=== PATIENT | male | born 1955 ===

== ENCOUNTER → 2018-03-02 | Outpatient (CLI) | payer OTHER ==
[~2018-03-02] MED LIST: CYCL10 PO; FERR325 PO; FISH1000 PO; FLUO10; GABA100; GABA300 PO; GLIP5; GLIP5 PO; LOSA25 PO; METF500 PO; Prozac20 MG PO
== END ==
LOC: LAB SHORT 15:00 → LAB 15:00
DX: G89.4 Chronic pain syndrome (principal); Z79.899 Other long term (current) drug therapy
CPT/HCPCS: G0480

== ENCOUNTER → 2018-05-21 | Outpatient (CLI) | payer OTHER | END | disposition home or self-care (01) | LOC: LAB SHORT 10:47 → LAB 10:47 | DX: D50.0 Iron deficiency anemia secondary to blood loss (chronic) (principal) | CPT/HCPCS: 82607; 82746 ==

== ENCOUNTER → 2019-04-29 | Outpatient (CLI) | payer OTHER ==
[2019-04-29 13:20] LABS: BASOPHILS ABSOLUTE AUTO 0.07 K/mm3 (0.00-0.23); BASOPHILS PERCENT AUTO 1 % (0-2); EOSINOPHILS ABSOLUTE AUTO 0.75 K/mm3 (0.00-0.68); EOSINOPHILS PERCENT AUTO 10 % (0-6); Hematocrit 44.5 % (37.0-53.0); Hemoglobin 14.7 g/dL (13.5-17.5); IMMATURE GRAN ABSOLUTE AUTO 0.03 K/mm3 (0.00-0.10); IMMATURE GRAN PERCENT AUTO 0 % (0-1); LYMPHOCYTES ABSOLUTE AUTO 1.54 K/mm3 (0.84-5.20); LYMPHOCYTES PERCENT AUTO 20 % (21-46); MONOCYTES ABSOLUTE AUTO 0.58 K/mm3 (0.16-1.47); MONOCYTES PERCENT AUTO 7 % (4-13); Mean Corpuscular HGB 31.5 pg (26.0-34.0); Mean Corpuscular Volume 95 fL (80-100); Mean Platelet Volume 10.2 fL (9.1-12.4); NEUTROPHILS ABSOLUTE AUTO 4.87 K/mm3 (1.96-9.15); NEUTROPHILS PERCENT AUTO 62 % (41-73); Platelet Count 234 K/mm3 (150-400); RDW Coefficient Variation 12.6 % (11.7-14.2); RDW Standard Deviation 44.2 fL (35.1-46.3); Red Blood Cell Count 4.67 M/mm3 (4.30-5.90); White Blood Cell Count 7.84 K/mm3 (4.00-11.30)
== END | disposition home or self-care (01) ==
LOC: LAB 13:06 → LAB SHORT 13:06
PROVIDERS: Internal Medicine Hematology & Oncology
DX: D50.0 Iron deficiency anemia secondary to blood loss (chronic) (principal)
CPT/HCPCS: 85025

== ENCOUNTER → 2022-09-02 | Outpatient (CLI) | payer SELFPAY ==
[2022-09-05 07:56] LABS: Stool Occult Bld Immuno 1 Negative (NEGATIVE)
== END | disposition home or self-care (01) ==
LOC: LAB SHORT 16:52
PROVIDERS: Nurse Practitioner Family
DX: Z12.11 Encounter for screening for malignant neoplasm of colon (principal)
CPT/HCPCS: G0328

== ENCOUNTER → 2023-05-14 | Outpatient (CLI) | payer OTHER ==
[2023-05-14 19:36] LABS: Percent Saturation 5.2 % (20.0-50.0)
== END | disposition home or self-care (01) ==
LOC: LAB 15:55 → LAB SHORT 15:55
PROVIDERS: Internal Medicine Hematology & Oncology
DX: D50.0 Iron deficiency anemia secondary to blood loss (chronic) (principal)
CPT/HCPCS: 82728; 83540; 83550

== ENCOUNTER 2023-07-15 07:27 | Day surgery (SDC) | payer OTHER ==
[~2023-07-15] VITALS: Ht 167 cm; Wt 81.4 kg
[2023-07-15] VITALS (27 sets, daily range): BP systolic 109–158; BP diastolic 58–119
[~2023-07-15 07:27] MED LIST changes: +INSULANI SC; +INSULANPEN SC
--- NOTE | 2023-07-15 07:57 | NUR ---
07/15/23 0757 Reji Mondragon HISTORY, CHART, MEDICATIONS AND ALLERGIES REVIEWED BEFORE START OF PROCEDURE. PATIENT CONFIRMS NPO STATUS AND AGREES WITH SCHEDULED PROCEDURE. 3-LEAD EKG REVIEWED WITH PHYSICIAN PRIOR TO START OF PROCEDURE. MONITOR INTACT WITH CONTINUOUS PULSE OXIMETRY,CAPNOGRAPHY, 3-LEAD EKG, INTERMITTENT BP. SUPPLEMENTAL O2 TO BE TITRATED THROUGHOUT PROCEDURE TO MAINTAIN O2 SATURATION ABOVE 90%. PATIENT DETERMINED TO BE ASA APPROPRIATE FOR PROPOFOL SEDATION PRIOR TO START OF PROCEDURE BY
--- NOTE | 2023-07-15 09:03 | NUR ---
REPORT RECEIVED FROM DRAGAN NICOLAS RN. VSS. PT ABLE TO REPOSITION SELF IN BED. PT REQUESTING PO FLUIDS AND TOLERATING THEM WELL. PT DENIES PAIN, NAUSEA, OR OTHER DISCOMFORTS AT THIS TIME. DAUGHTER AT BEDSIDE.
--- NOTE | 2023-07-15 09:31 | NUR ---
Patient up to Ambulate independently. Gait steady. VSS AND CONSISTENT WITH PT BASELINE. Discharge instructions reviewed with patient AND HIS DAUGHTER. Patient AND DAUGHTER verbalize understanding. Copy given to patient to take home. NO ADDITIONAL FORMS NEEDED PER PT AND DAUGHTER. Patient States Post-Procedure ride home has been arranged. Discharged via wheelchair to private car for ride home. PT BELONGINGS RETURNED TO PT.
== END 2023-07-15 09:37 | disposition home or self-care (01) ==
LOC: ORSCMMR 07:27 → ORD 08:00 → ORSCMMR 09:37
PROVIDERS: Internal Medicine Gastroenterology
PROC: 0DJ08ZZ Inspection of Upper Intestinal Tract, Via Natural or Artificial Opening Endoscopic (ICD-10-PCS; principal; 2023-07-15 08:00)
PROC: 0DJD8ZZ Inspection of Lower Intestinal Tract, Via Natural or Artificial Opening Endoscopic (ICD-10-PCS; principal; 2023-07-15 08:00)
DX: D62 Acute posthemorrhagic anemia (principal); K31.811 Angiodysplasia of stomach and duodenum with bleeding; K55.21 Angiodysplasia of colon with hemorrhage; I10 Essential (primary) hypertension; E11.9 Type 2 diabetes mellitus without complications; E78.00 Pure hypercholesterolemia, unspecified; F17.210 Nicotine dependence, cigarettes, uncomplicated; Z79.4 Long term (current) use of insulin; Z79.84 Long term (current) use of oral hypoglycemic drugs; Z79.899 Other long term (current) drug therapy
CPT/HCPCS: 82947; A9270; J2704; J7120

== ENCOUNTER 2023-11-21 20:50 | Inpatient (IN) | payer OTHER ==
[~2023-11-21] VITALS: Ht 165.1 cm; Wt 85.2 kg
[2023-11-21 21:10] LABS: BASOPHILS ABSOLUTE AUTO 0.07 K/mm3 (0.00-0.23); BASOPHILS PERCENT AUTO 0 % (0-2); EOSINOPHILS ABSOLUTE AUTO 0.04 K/mm3 (0.00-0.68); EOSINOPHILS PERCENT AUTO 0 % (0-6); Hematocrit 32.4 % (37.0-53.0); Hemoglobin 8.5 g/dL (13.5-17.5); IMMATURE GRAN ABSOLUTE AUTO 0.39 K/mm3 (0.00-0.10); IMMATURE GRAN PERCENT AUTO 2 % (0-1); LYMPHOCYTES ABSOLUTE AUTO 4.03 K/mm3 (0.84-5.20); LYMPHOCYTES PERCENT AUTO 22 % (21-46); MONOCYTES ABSOLUTE AUTO 1.65 K/mm3 (0.16-1.47); MONOCYTES PERCENT AUTO 9 % (4-13); Mean Corpuscular HGB 20.8 pg (26.0-34.0); Mean Corpuscular HGB Conc 26.2 g/dL (31.5-36.5); Mean Corpuscular Volume 79 fL (80-100); Mean Platelet Volume 10.5 fL (9.1-12.4); NEUTROPHILS PERCENT AUTO 66 % (41-73); NRBC Auto 0.6 /100 WBC (0.0-0.2); Platelet Count 293 K/mm3 (150-400); RDW Coefficient Variation 17.6 % (11.7-14.2); RDW Standard Deviation 50.2 fL (35.1-46.3); Red Blood Cell Count 4.09 M/mm3 (4.30-5.90); White Blood Cell Count 18.18 K/mm3 (4.00-11.30)
[2023-11-21] MEDS ORDERED: Calcium Gluconate 10% 1,000 MG in NS 50 ML IV ONE (21:10)
[2023-11-21 21:15] LABS: Calcium, Ionized (POC) 1.08 mmol/L (1.10-1.46); Chloride (POC) 102 mmol/L (98-108); Creatinine (POC) 1.2 mg/dL (0.8-1.3); Glucose (ISTAT POC) 334 mg/dL (70-99); Hemoglobin (POC) 10.9 g/dL (13.5-17.5); Potassium (POC) 4.5 mmol/L (3.5-5.5); Sodium (POC) 132 mmol/L (135-148); Total CO2 (POC) 13 mmol/L (21-32)
[2023-11-21 21:25] LABS: Albumin/Globulin Ratio 0.8 (0.8-1.8); Bilirubin, Total 0.5 mg/dL (0.1-1.0); Bun/Creatinine Ratio 16.1 (12.0-20.0); Calcium, Blood 8.8 mg/dL (8.5-10.1); Creatinine, Blood 1.12 mg/dL (0.60-1.20); Globulin, Blood 3.8 g/dL (2.2-4.0); Potassium, Blood 4.5 mmol/L (3.5-5.5); Total Protein, Blood 6.8 g/dL (6.4-8.2)
[2023-11-21] MEDS ORDERED: Albuterol 2.5 MG/3 ML VIAL INH SCH (21:25)
[2023-11-21 21:40] LABS: PO2 Arterial 194 mmHg (80-100)
[2023-11-21] MEDS ORDERED: Midazolam HCl 1MG / ML 2ML Vial ONE (21:57)
[2023-11-21] MEDS ORDERED: FentaNYL Citrate 50 MCG/ML 2 ML Injection IV ONE (22:15)
[2023-11-21] MEDS ORDERED: Midazolam HCl 1MG / ML 2ML Vial IV ONE (22:15)
[2023-11-21] MEDS ORDERED: Aspirin 325 MG Tab PT ONE (22:20)
[2023-11-21] MEDS ORDERED: propofoL 100 ML IV SCH (22:25)
[2023-11-21 22:43] LABS: International Normalized Ratio 1.24; Prothrombin Time Results 12.9 Sec (9.7-11.5)
[2023-11-21] MEDS ORDERED: Ketamine HCl 100 MG / ML 5ML Vial IV ONE (22:55)
[2023-11-21] MEDS ORDERED: Ketamine HCL 10 MG/ML 5ML SYR ONE (23:07)
[2023-11-21] MEDS ORDERED: Heparin Sodium,Porcine/0.5 NS 500 ML IV SCH (23:10)
[2023-11-22] VITALS (25 sets, daily range): BP systolic 43–132; BP diastolic 25–96
[2023-11-22] MEDS ORDERED: Sodium Bicarb 8.4% 1 MEQ/ML 50 ML Vial IV STA ×2 (00:09→02:57)
[2023-11-22] MEDS ORDERED: FentaNYL Citrate 50 MCG/ML 2 ML Injection IV PRN (00:10)
[2023-11-22] MEDS ORDERED: FLU VACC QS2023-24(6MOS UP)/PF 60 MCG/0.5 ML SYRINGE IM ONE ×2 (00:10)
[2023-11-22] MEDS ORDERED: Midazolam HCl 1MG / ML 2ML Vial ONE (00:22)
[2023-11-22] MEDS ORDERED: Midazolam HCL 1 MG/ML 5MLVIAL IV ONE (00:50)
[2023-11-22] MEDS ORDERED: DEXTROSE 5% IV SCH (01:20)
[2023-11-22] MEDS ORDERED: Vasopressin 50 UNITS in NS 50 ML IV SCH (01:20)
[2023-11-22] MEDS ORDERED: EPINEPHRINE HCL IV SCH (01:20)
[2023-11-22 02:05] LABS: Source, Urine Foley catheter
[2023-11-22 02:09] LABS: Hematocrit 30.6 % (37.0-53.0); Hemoglobin 8.4 g/dL (13.5-17.5); Mean Corpuscular HGB 21.7 pg (26.0-34.0); Mean Corpuscular HGB Conc 27.5 g/dL (31.5-36.5); Mean Corpuscular Volume 79 fL (80-100); Mean Platelet Volume 9.6 fL (9.1-12.4); NRBC ABSOLUTE 0.19 K/mm3 (0.00-0.02); NRBC Auto 0.5 /100 WBC (0.0-0.2); Platelet Count 394 K/mm3 (150-400); RDW Coefficient Variation 17.4 % (11.7-14.2); RDW Standard Deviation 49.1 fL (35.1-46.3); Red Blood Cell Count 3.87 M/mm3 (4.30-5.90); White Blood Cell Count 39.71 K/mm3 (4.00-11.30)
[2023-11-22 02:16] LABS: Bilirubin, Urine Neg (Neg); Blood, Urine 1+ (Neg); Glucose Qualitative, Urine 4+ (Neg); Ketones, Urine 2+ (Neg); Leukocyte Esterase, Urine Neg (Neg); Nitrite, Urine Neg (Neg); Protein, Urine 1+ (Neg); Specific Gravity, Urine 1.015 (1.003-1.022); Urobilinogen, Urine NORM (Normal)
[2023-11-22 02:25] LABS: Appearance, Urine Hazy (Clear); Color, Urine Yellow (P-Yellow)
[2023-11-22 02:28] LABS: Bacteria Mod /hpf; Red Blood Cells, Urine 0-2 /hpf (0-2); Spermatozoa Many /hpf; Squamous Epithelial Cells Few /hpf (Few)
[2023-11-22 02:32] LABS: Albumin, Blood 2.9 g/dL (3.4-5.0); Albumin/Globulin Ratio 0.8 (0.8-1.8); Bilirubin, Total 0.8 mg/dL (0.1-1.0); Bun/Creatinine Ratio 15.7 (12.0-20.0); Calcium, Blood 8.2 mg/dL (8.5-10.1); Creatinine, Blood 1.59 mg/dL (0.60-1.20); Globulin, Blood 3.6 g/dL (2.2-4.0); Potassium, Blood 4.7 mmol/L (3.5-5.5); Total Protein, Blood 6.5 g/dL (6.4-8.2)
[2023-11-22 02:40] LABS: Magnesium, Blood 2.8 mg/dL (1.6-2.4)
[2023-11-22 02:48] LABS: Phosphorus, Blood 11.1 mg/dL (2.5-4.9)
[2023-11-22] MEDS ORDERED: Aluminum Hydroxide 320MG/5ML 473 ML PT SCH ×2 (03:45→08:00)
[2023-11-22] MEDS ORDERED: Hydrogen Peroxide 1.5 % Solution MT SCH (04:00)
[2023-11-22] MEDS ORDERED: Calcium Acetate 667 MG Gel Cap PO SCH (04:00)
--- NOTE | 2023-11-22 04:35 | NUR ---
PT ARRIVED TO ROOM ICU4 FROM ED VIA HOSPITAL BED. INTUBATED AND SEDATED ON PROPOFOL. PROPOFOL DOSAGE HAS REMAINED THE SAME, HAD TO CHANGE WEIGHT IN THE PUMP. NO PUPIL RESPONSE, NO PURPOSEFUL MOVEMENT, SEIZURE LIKE ACTIVITY APPROXIMATELY EVERY 2O MINUTES OR WITH STIMULATION. VENT SETTINGS AC V/C 16/430/8/55%. RR 25-30'S. SUCTIONING THIN PINK TINGED SPUTUM. ETT 8.0 AND 26 AT THE GUMS. LUNGS COARSE IN BILATERAL BASES. HR IN 70'S-80'S WITH FREQUENT PVC'S. BP HYPOTENSIVE ON ARRIVAL FROM ED. PER ER NURSE EPI WAS STOPPED BEFORE TRANSFER. MAP IN 40'S ON ARRIVAL WITH LEVO INFUSING AT 8MCG/MIN. CALLED HOSPITALIST - ORDERS FOR VASOPRESSIN AND EPINEPHRINE RESTARTED. CURRENTLY LEVOPHED INFUSING AT 30MCG/MIN, EPINEPHRINE AT 5MCG/MIN, AND VASOPRESSIN - MAP CURRENTLY 72. OG TUBE TO LIS WITH RED TO FRASER BILE FROM OG. TEMP HASITNGS IN PLACE DRAINING CLEAR YELLOW URINE. TEMP CURRENTLY 96.9 WITH ORDERS TO KEEP PATIENT AT THIS TEMP. FAMILY TO BEDSIDE BRIEFLY AND THEN WENT HOME. WILL TAKE PATIENT TO CT WHEN STABLE. CRITICAL PHOS CALLED TO HOSPITALIST - MEDICATING PER EMAR.
[2023-11-22 05:41] LABS: PCO2 Arterial 41.7 mmHg (35-45); PO2 Arterial 91.3 mmHg (80-100); pH Blood Arterial 6.82 (7.35-7.45)
[2023-11-22] MEDS ORDERED: Sodium Bicarb 8.4% 1 MEQ/ML 50 ML Vial IV ONE ×3 (05:55→07:20)
[2023-11-22] MEDS ORDERED: Insulin Human Lispro 100 Units/ML 3ML Syringe SC SCH (06:00)
[2023-11-22] MEDS ORDERED: Pantoprazole Sodium 40 MG Injection IV SCH (06:01)
[2023-11-22] MEDS ORDERED: Piperacillin/Tazobactam Sod 3.375 GM in NS 50 ML IV SCH (06:30)
[2023-11-22] MEDS ORDERED: Dose Adjust by Pharmacy XX STA (06:33)
[2023-11-22] MEDS ORDERED: NS 500 ML IV PRN (06:35)
[2023-11-22 07:32] LABS: PO2 Arterial 104 mmHg (80-100); pH Blood Arterial 7.23 (7.35-7.45)
--- NOTE | 2023-11-22 07:37 | NUR ---
DR. PRATHER CALLED DUE TO PRESSOR NEEDS AND NO IMPROVEMENT IN CONDITION. DR. PRATHER TO BEDSIDE. VENT SETTINGS CHANGED AND PRESSORS TITRATED, WELL BICARB PUSH GIVEN DUE TO RECENT ABG RESULT AND LABS. ARTERIAL LINE PLACED TO RIGHT RADIAL SITE. ANOTHER ABG WAS DRAWN. EL KAMARA TO BESIDE. REPORT GIVEN. DAUGHTER UPDATED ON PATIENT CONDITION.
[2023-11-22] MEDS ORDERED: Calcium Gluconate 10% 1,000 MG in NS 50 ML IV ONE (07:40)
[2023-11-22] MEDS ORDERED: Ipratropium/Albuterol SulF 2.5-0.5MG/3 ML Amp INH ONE (07:50)
--- NOTE | 2023-11-22 08:53 | NUR ---
AM NOTE... ASSUMED CARE OF PT AT 0700. PT IS INTUBATED S/P CARDIAC ARREST. VENT SETTINGS ARE AC/VC:16/500/8/65%, THIS WAS CHANGED TO AC/VC:30/500/5/65% AFTER ABG WAS DRAWN. HE IS IN SR/SB W/BBB AND PVCs. IN THE 50'S-70'S, ART LINE WAS JUST PLACED BY DR. PRATHER IN THE RIGHT RADIAL. EPI IS RUNNING AT 30MCG/MIN, LEVOPHED IS RUNNING AT 25MCG/MIN WELL VASO. MAPS PER THE ART LINE HAVE BEEN 40'S-50'S. NO SEDATION IS RUNNING AT THIS TIME. PT IS HAVING MYOCLONIC JERKS WITH ANY STIMULIATION, NO COUGH OR GAG IS NOTED ON THIS ASSESSMENT, THE PT'S RIGHT PUPIL IS 3MM, THE LEFT IS 4MM MINIMAL REACTION NOTED. OG TUBE IS PRESENT AND SET TO LIS. TEMP HASTINGS IS PATENT AND DRAINING SCANT URINE TO GRAVITY. THE PT'S EXTREMITIES ARE COOL TO THE TOUCH AND DUSKY WITH >3 SECONDS CAP REFIL. THE PT'S FAMILY WAS CALLED AND NOTIFIED HIS CONDITION WAS VERY CRITICAL AND TO COME IN. ONCE THE FAMILY HAD ARRIVED DR. PRATHER UPDATED THEM ON HIS CRITICAL CONDITION AND PLAN OF CARE. PER THE FAMILY THEY WANTED TO MAKE HIM A DNR AND ASKED FOR CANAL STRUCTURE OPERATOR TO BE CALLED. THIS WAS DONE PER THE FAMILY'S REQUEST. WILL CONTINUE TO MONITOR.
[2023-11-22] MEDS ORDERED: EPINEPhrine HCl 0.1 MG/ML 10ML SYR XX ONE (10:00)
[2023-11-22] MEDS ORDERED: Sodium Bicarb 8.4% 50 mEq Syringe IV ONE ×2 (10:00→12:00)
[2023-11-22] MEDS ORDERED: Atropine Sulfate 1% Opth Soln 2ML BTL SL PRN (10:05)
[2023-11-22] MEDS ORDERED: Morphine Sulfate 10 MG/ML 1MLSYR IV PRN (10:05)
[2023-11-22] MEDS ORDERED: LORazepam 2 MG/ML 1ML Injection IV PRN (10:05)
[2023-11-22] MEDS ORDERED: Morphine Sulfate 20 MG/1ML 1 ML Oral Syringe SL PRN (10:05)
--- NOTE | 2023-11-22 11:41 | NUR ---
PT LIBERATED TO COMFORT CARE... THE PT'S FAMILY ARRIVED AT THE BEDSIDE AROUND 0900. PROVIDER SPOKE WITH THE FAMILY AND UPDATED THEM. AT THAT TIME THE FAMILY MADE THE PT A DNR AND AT 1000 THEY DECIDED TO LIBERATE THE PT TO COMFORT CARE. PALLIATIVE CARE RN WAS NOTIFIED AND SHE SPOKE WITH THE FAMILY. AT 1020 THE PT WAS MEDICATED FOR PAIN, 1026 THE PT WAS LIBERATED FROM THE VENT, FAMILY WAS BROUGHT INTO THE ROOM AFTER HE WAS LIBERATED. PT LOOKED COMFORTABLE. AT 1036 THE PT WAS PRONOUNCED BY THIS RN AND E/M ENGINEER VIKTORIA VALENTINE. PROVIDER WAS NOTIFIED. THE M.E. OFFICE WAS CALLED AND CLEARED THE PT FOR DISCHARGE TO THE HOME.
--- NOTE | 2023-11-22 16:42 | NUR ---
Called to ICU by Raquel KAMARA, Brenda, for care goals and support of family. Pt likes to be addressed as Cata. Cata lying supine in hospital bed, intubated s/p cardiac arrest. Daughter, 2 sons and DIL at bedside. Dtr shared details on the medical event prior to coming to the hospital. She is very tearful and showing signs of anticipitory greif. Theraputic listening provided for family. Gentle education on what liberation from intubation would mean for Cata. All of Cata's children voiced Cata would not want to linger and they would like to proceed with comfort care. Father Josep called to see pt. Family expressed gratitude for Father Josep and Cata's care team.
--- NOTE | 2023-11-22 16:51 | NUR ---
2nd Supportive Visit Empowered family to share some life events, wheep and laugh. Family is all very supportive of each other. Father Cleatus to room for last rights and prayer. This PC RN escorted family out of ICU during liberation from intubation. S/P extubation, escorted family back to pt's room and was present for moral support.
== END 2023-11-22 15:00 ==
LOC: ER 20:50 → ICUE 11-22 00:06
PROVIDERS: Emergency Medicine; Student in an Organized Health Care Education/Training Program; ADMIT Internal Medicine
PROC: 5A1935Z Respiratory Ventilation, Less than 24 Consecutive Hours (ICD-10-PCS; principal; 2023-11-21)
PROC: 0BH17EZ Insertion of Endotracheal Airway into Trachea, Via Natural or Artificial Opening (ICD-10-PCS; 2023-11-21)
PROC: 5A12012 Performance of Cardiac Output, Single, Manual (ICD-10-PCS; 2023-11-21)
PROC: 3E033XZ Introduction of Vasopressor into Peripheral Vein, Percutaneous Approach (ICD-10-PCS; 2023-11-21)
PROC: 02HV33Z Insertion of Infusion Device into Superior Vena Cava, Percutaneous Approach (ICD-10-PCS; 2023-11-21)
PROC: 03HY32Z Insertion of Monitoring Device into Upper Artery, Percutaneous Approach (ICD-10-PCS; 2023-11-22)
PROC: 4A133B1 Monitoring of Arterial Pressure, Peripheral, Percutaneous Approach (ICD-10-PCS; 2023-11-22)
PROC: 4A133J1 Monitoring of Arterial Pulse, Peripheral, Percutaneous Approach (ICD-10-PCS; 2023-11-22)
PROC: 4A133R1 Monitoring of Arterial Saturation, Peripheral, Percutaneous Approach (ICD-10-PCS; 2023-11-22)
DX: I42.8 Other cardiomyopathies (principal); I50.21 Acute systolic (congestive) heart failure; I21.4 Non-ST elevation (NSTEMI) myocardial infarction; J96.01 Acute respiratory failure with hypoxia; J96.02 Acute respiratory failure with hypercapnia; N17.9 Acute kidney failure, unspecified; E87.21 Acute metabolic acidosis; Z51.5 Encounter for palliative care; Z66 Do not resuscitate; G93.1 Anoxic brain damage, not elsewhere classified; I46.2 Cardiac arrest due to underlying cardiac condition; D64.9 Anemia, unspecified; R57.0 Cardiogenic shock; J44.9 Chronic obstructive pulmonary disease, unspecified; E11.9 Type 2 diabetes mellitus without complications; I44.7 Left bundle-branch block, unspecified; E78.00 Pure hypercholesterolemia, unspecified; E83.51 Hypocalcemia; I11.0 Hypertensive heart disease with heart failure; Z79.4 Long term (current) use of insulin
CPT/HCPCS: 31500; 36415; 36556; 36600; 36620; 51702; 71045; 80047; 80053; 81001; 82330; 82803; 82947; 83735; 83880; 84100; 84484; 85014; 85025; 85027; 85520; 85610; 85730; 87086; 92950; 93005; 93010; 93308; 93321; 94002; 94003; 94640; 94664; 96365-59; 96366-59; 96368; 96375-59; 96376-59; 99291-25; 99292; A9270; C1751; C9113; J0171; J0612; J1644; J2250; J2270; J2543; J2704; J3010; J7040; J7060